=== PATIENT | male | born 1955 | race Caucasian/White ===

== ENCOUNTER 2020-03-28 13:31 | Outpatient (CLI) | payer OTHER, SELFPAY ==
--- NOTE | ~2020-03-28 | XR_ITS ---
EXAMINATION: XR chest 2V DATE: 03/28/2020 13:57 INDICATION: Productive cough. TECHNIQUE: Frontal and lateral views of the chest were obtained. COMPARISON: Chest 2 views 07/25/2010, CT abdomen and pelvis 07/25/2010 FINDINGS: The chest demonstrates clear lungs without pneumonia, pleural effusion, or pneumothorax. Th e heart size is normal. IMPRESSION: 1. No acute cardiopulmonary disease. Reviewed, dictated and finalized at location A.
== END 2020-03-28 13:32 | disposition home or self-care (01) ==
PROVIDERS: PCP Family Medicine Adolescent Medicine; Visit Provider Family Medicine Adolescent Medicine
DX: R05 Cough (principal)
CPT/HCPCS: 71046

== ENCOUNTER 2023-07-24 11:31 | Emergency (ER) | payer OTHER, SELFPAY ==
[2023-07-24 11:44] VITALS: BP 138/78; PULSE 58; RESP 18; TEMP 36.8; O2SAT 98
--- NOTE | 2023-07-24 12:13 | ED.URI ---
HPI - URI/Sore Throat General Chief Complaint: Upper Respiratory Infection Stated Complaint: cough,sob Time Seen by Provider: 07/24/23 12:00 Source: patient and RN notes reviewed Mode of arrival: ambulatory Limitations: no limitations History of Present Illness HPI Narrative: Patient presents today complaining of postnasal drip that has been worse over the last 3-4 days. States he has had postnasal drip for the past 23 years approximately. He also has developed a cough over the last 4 days that is mostly dry. Reports 1 episode of shortness of breath with a severe coughing episode this morning. Denies sore throat, nausea, vomiting, diarrhea. He has tried Claritin, cough drops, nasal spray, DayQuil, NyQuil without much relief. Denies any history of asthma or COPD. He is a nonsmoker. Related Data Allergies Allergy/AdvReac Type Severity Reaction Status Date / Time No Known Allergies Verified 03/03/22 15:18 Review of Systems Review of Systems: CONSTITUTIONAL: Denies body aches, fever, chills, or sweats. EYES: Denies visual changes, redness, or discharge. ENT: Denies rhinorrhea, sore throat, or otalgia.+ congestion, postnasal drip CARDIOVASCULAR: Denies chest pain, palpitations, or edema. RESPIRATORY: + cough, shortness of breath. GASTROINTESTINAL: Denies abdominal pain, nausea, vomiting, or diarrhea. GENITOURINARY: Denies dysuria or hematuria. SKIN: Denies rash, itching, or wounds. MUSCULOSKELETAL: Denies back pain, joint pain, or myalgia. NEUROLOGIC: Denies headache, numbness, tingling, or weakness. PSYCH: Denies depression or anxiety. [facility] Past Medical History Medical History History of prostate cancer 2009 Surgical History Surgical History History of radical prostatectomy 2009 Family History Family History Mother Carcinoma of colon Depression Social History Social History Smoking status: Never smoker Second hand tobacco smoke exposure: No Drinks per week: 4 Substance use: never Substance use type: does not use Lack of Transportation: No Lack of Food: Never True Current Housing: I Have Housing Concerned About Future Housing: No Difficulty Paying Gas/Electric Bills: No Difficulty Paying for Meds: No Currently Unemployed: No Education: High School Diploma/GED Difficulty w/ Childcare or Family Care: No Living arrangements: with family Occupation/Education: retired Gender identity (if verbalized by the patient): Male Sexual Orientation (if Verbalized by the Patient): Straight or Heterosexual Spiritual care concerns: No Agree to blood products: Yes Comments At time of signature, I have reviewed and agree with nursing past medical, surgical, social and family history unless otherwise noted. Please see nursing chart for further information. There is no relevant family history pertinent to the presenting complaint Exam Narrative: GENERAL: Well-appearing, well-nourished, and in no acute distress. HEAD: Normocephalic, atraumatic. EYES: EOMI. No redness or drainage. Conjunctivae normal. ENT: Mucous membranes pink and moist. Nares mildly congested. No rhinorrhea. Right nasal turbinates are erythematous and edematous. TMs normal bilaterally. Throat normal. Uvula midline. NECK: Normal AROM. Supple. No lymphadenopathy. CHEST: No respiratory distress. Clear to auscultation. HEART: Regular rate and rhythm. No murmur appreciated. Normal peripheral pulses. EXTREMITIES: Normal range of motion. No edema. SKIN: Warm, dry, no rash. Capillary refill normal. Normal skin turgor. NEURO: No focal deficits. Alert and oriented x3. Gait steady. PSYCH: Normal affect. No signs of depression or anxiety. Course Course Level of
== END 2023-07-24 12:25 | disposition home or self-care (01) ==
PROVIDERS: Emergency Provider Nurse Practitioner; PCP Family Medicine Adolescent Medicine
DX: J06.9 Acute upper respiratory infection, unspecified (principal); Z85.46 Personal history of malignant neoplasm of prostate
CPT/HCPCS: 99213; G0463

== ENCOUNTER 2024-05-09 13:24 | Outpatient (CLI) | payer MEDICARE, SELFPAY ==
--- NOTE | 2024-05-09 13:35 | ECG_ITS ---
Test Date: 2024-05-09 13:44:11 Measurements Intervals [place] Rate: 66 P: 44 DE: 162 QRS: -2 QRSD: 85 T: 31 QT: 380 QTc: 399 Interpretive Statements SINUS RHYTHM BASELINE ARTIFACT- I, II, AVR NORMAL ECG No previous ECG available for comparison Electronically Signed On 05-09-2024 14:00:26 CDT by Jose Valiente D.O.
== END 2024-05-09 13:25 | disposition home or self-care (01) ==
LOC: ANHSURGERY 13:27
PROVIDERS: PCP Family Medicine Adolescent Medicine; Visit Provider Otolaryngology
DX: E78.00 Pure hypercholesterolemia, unspecified (principal); Z01.818 Encounter for other preprocedural examination
CPT/HCPCS: 93005

== ENCOUNTER 2024-05-12 00:52 | Day surgery (SDC) | payer MEDICARE, SELFPAY ==
--- NOTE | 2024-05-08 15:46 | PC.NURSE ---
Report to the Outpatient Waiting Room, entrance under the green pavilion located off [facility], at time _1145 AM on date ___05/12/24____. Planned Procedure Time: _1:45PM . Time changes happen often and if your time is changed the preop area will call you the afternoon before. - You and your visitor will be asked to self-screen and do not enter if you have any COVID symptoms. - A mask is optional within the hospital at this time. Patients may have clear liquids (water, carbonated beverages, clear teas, apple juice) until 3 hours prior to surgery( 10:45 AM) with a maximum of 20 ounces. - No food from midnight until time of surgery - Infants may have breast milk until 4 hours before surgery, infant formula 6 hours prior to surgery. - Children will be allowed to drink immediately following surgery. If applicable, please bring a bottle or sippy cup to assist with drinking. Juice, water, soda, and popsicles are readily available. For infants on formula, please bring formula the day of surgery. Pacifiers are allowed. Take the following medications with a SIP of water the morning of surgery: __NONE DO NOT STOP ANY OF YOUR OTHER PRESCRIPTION MEDICATIONS PRIOR TO SURGERY ?EXCEPT THE FOLLOWING Medications to discontinue per physician NONE Please no make-up, nail mohawk, hairspray, perfume, deodorant, or body powder the day of surgery. No jewelry (including any body piercings) or valuables the day of surgery, leave them at home. Please take a shower or bath the night before, or the morning of, surgery with an antibacterial soap. Wear comfortable, loose fitting clothing. Children are encouraged to wear pajamas. - Jewelry must be removed prior to entering the operating room. Rings and piercings that are not removed may be cut off. - The hospital will not accept responsibility for valuables. - Please leave all valuables, including medications, at home the day of surgery. If you are going home after surgery, a licensed [place] driver must drive you home. - NO public transportation without another adult if you receive anesthesia. - We recommend that an adult stay with you for 24 hours following discharge. - We also recommend that you do not drive, make important decision, drink alcoholic beverages, or take any drugs that were not prescribed by your health care provider for at least 24 hours after your discharge time. Follow any additional instructions given to you from your surgeon. If you or anyone in your household have experienced Covid symptoms in the past week, please notify your surgeon or the nurse liaison at the phone number below for possible testing. Telephone instructions given to __PATIENT and asked if any additional questions and then verbalized understanding. Patient advised to call surgeon office or pre surgery nurse liaison [phone] if any additional questions.
[2024-05-08 15:51] VITALS: BMI 29.0
--- NOTE | 2024-05-11 16:44 | PM.IMHP ---
H&P: HPI History of Present Illness Date/Time: 05/11/24 16:44 Chief Complaint: hoarse voice vocal cord lesion Narrative: planned procedure Review of Systems Review of Systems: All systems reviewed & are unremarkable except as noted in HPI and below PMFSH Past Medical History Medical History History of prostate cancer 2009 Surgical History Surgical History History of radical prostatectomy 2009 Family History Family History (Updated 05/04/24 @ 09:28 by Edyta Azevedo CMA) Mother Carcinoma of colon Depression Sibling Depression Social History Social History Smoking status: Never smoker Second hand tobacco smoke exposure: No Alcohol intake: current Drinks per week: 8 Substance use: never Substance use type: does not use Lack of Transportation: No Lack of Food: Never True Current Housing: I Have Housing Concerned About Future Housing: No Difficulty Paying Gas/Electric Bills: No Difficulty Paying for Meds: No Currently Unemployed: No Education: High School Diploma/GED Difficulty w/ Childcare or Family Care: No Living arrangements: with family Occupation/Education: retired Gender identity (if verbalized by the patient): Male Sexual Orientation (if Verbalized by the Patient): Straight or Heterosexual Spiritual care concerns: No Agree to blood products: Yes Meds Home Medications and Allergies Home Medications Medication Instructions Recorded Confirmed Type atorvastatin 20 mg tablet 20 mg PO DAILY #90 tabs 06/10/23 05/08/24 Rx ipratropium bromide 42 mcg (0.06 2 spray intranasal TID PRN nasal 08/09/23 05/08/24 Rx %) nasal spray drainage #15 mL Allergies Allergy/AdvReac Type Severity Reaction Status Date / Time No Known Allergies Allergy Verified 05/08/24 15:39 Exam Narrative: vocal cord lesion Assessment and Plan Assessment and plan (1) Lesion of true vocal cord: Code(s): J38.3 - Other diseases of vocal cords Status: Acute Assessment and Plan: plan OR Microdirect laryngoscopy, will also need endoscope, excision of vocal cord lesion. Risks discussed bleeding infection damage to surrounding structures damage any structures above the clavicles by myself damage to any structure induction and maintenance of anesthesia including vocal cord paralysis vocal cord paralysis or myself change in voice which could be permanent change in swallow which could be permanent failure to resolve symptoms need for further procedures failure to obtain diagnosis. Damage to dentition damage to jaw. Patient voiced understanding of these risks and agreed (2) PND (post-nasal drip): Code(s): R09.82 - Postnasal drip Status: Acute
[2024-05-12] VITALS (11 sets, daily range): BP systolic 117–144; BP diastolic 65–77; PULSE 50–63; RESP 12–18; TEMP 36.3–36.6; O2SAT 96–100; BMI 28.3
--- NOTE | 2024-05-12 07:18 | WPDHPUPDATE1 ---
History and Physical Update Update Date/Time: 05/12/24 07:18 History and Physical has been reviewed, including an updated exam of the patient. There are NO changes in the patient's condition. Risks, benefits, and alternatives have been discussed and questions answered. Patient agrees to proceed with procedure.
[2024-05-12] MEDS: ACETAMINOPHEN 500 MG TABLET 1000 MG PO (10:23)
--- NOTE | 2024-05-12 10:53 | WPDANESEPPF ---
Anes - Initial Pre Proc Eval Procedure: Operation Date: 05/12/24 13:45 Proposed Procedures p Microdirect Laryngoscopy with Vocal Cord Biopsy - Carlyle Alexander MD Date/Time: 05/12/24 10:53 Surgeon: Carlyle Alexander MD Pre Op Diagnosis: Vocal Cord Lesion Patient Data Age: 68 Gender: M Height: 1.78 m Weight: 91.65 kg Allergies Allergy/AdvReac Type Severity Reaction Status Date / Time No Known Allergies Allergy Verified 05/08/24 15:39 Home Medications Medication Instructions Recorded Confirmed Type atorvastatin 20 mg tablet 20 mg PO DAILY #90 tabs 06/10/23 05/08/24 Rx ipratropium bromide 42 mcg (0.06 2 spray intranasal TID PRN nasal 08/09/23 05/08/24 Rx %) nasal spray drainage #15 mL Patient hx anesthesia problems: none Family hx anesthesia problems: none Results Review: All pre-operative results and documents have been reviewed as part of the pre-operative evaluation. [facility] Past Medical History Medical History History of prostate cancer 2009 Surgical History Surgical History History of radical prostatectomy 2009 Family History Family History Mother Carcinoma of colon Depression Sibling Depression Social History Social History Smoking status: Never smoker Second hand tobacco smoke exposure: No Alcohol intake: current Drinks per week: 8 Substance use: never Substance use type: does not use Lack of Transportation: No Lack of Food: Never True Current Housing: I Have Housing Concerned About Future Housing: No Difficulty Paying Gas/Electric Bills: No Difficulty Paying for Meds: No Currently Unemployed: No Education: High School Diploma/GED Difficulty w/ Childcare or Family Care: No Living arrangements: with family Occupation/Education: retired Gender identity (if verbalized by the patient): Male Sexual Orientation (if Verbalized by the Patient): Straight or Heterosexual Spiritual care concerns: No Agree to blood products: Yes Anes - Eval Final PreProcedure Day of Procedure 05/12/24 10:53 Patient weight: overweight Heart: regular rate and rhythm Lungs: clear to auscultation Airway: Mallampati scale class II Neurological: alert and oriented Last oral intake: >/= 8 hours ASA classification: II Emergent: no Anesthetic plan: proceed Anesthesia type and monitoring: general ETT and standard monitoring Results Review: All pre-operative results and documents have been reviewed as part of the pre-operative evaluation. Informed Consent: The patient's anesthetic plan and its attendant risks and benefits were discussed with the patient/family/POA. Questions were solicited and answers provided to the satisfaction of the patient/family/POA.
[2024-05-12] MEDS: LACTATED RINGERS 1,000 ML 30 ML IV CONT ×2 (11:11→12:16)
[2024-05-12] MEDS: ceFAZolin 2 GM/D5W 50 ML 2 GM/50 ML BAG IVPB (11:12)
[2024-05-12] MEDS: OXYMETAZOLINE HCL 0.05% NAS 15 ML BTL (*BKC) 1 SPRAY NASAL (11:24)
[2024-05-12] MEDS: fentaNYL CITRATE INJ (*CRX) 100 MCG/2 ML VIAL 25 MCG IV PUSH ×2 (12:14→12:19)
[2024-05-12] MEDS: ONDANSETRON INJ 4 MG/2 ML VIAL IV PUSH (12:53)
[2024-05-12] MEDS: oxyCODONE HCL (*CRX) 5 MG TAB IR PO (13:15)
--- NOTE | 2024-05-12 15:08 | P.OP_ITS ---
Procedure Note - Detailed Date of Procedure 05/12/24 Pre-op Diagnosis Vocal Cord Lesion Post-op Diagnosis Same Procedure Performed Microdirect laryngoscopy with excisional biopsy of right vocal cord lesion sorry X using left vocal cord lesion left Surgeon Carlyle Alxeander MD Anesthesia General Indications see above Findings large exophytic left vocal cord lesion abutting the anterior commissure extending slightly subglottic as well Description of Procedure patient identified consent verified preoperative patient operating. Time-out performed. General anesthesia induced endotracheal tube secured. Patient pr epped draped position procedure confirmed 2nd time-out performed. Maxillary mouth guard placed. The Dedo laryngoscope placed airway no teeth were damaged. Vocal cords glottis brought into view lesion described above multiple biopsies were taken bleeding controlled with Afrin-soaked pledgets. And procedure about 1 cc of blood loss no active bleeding the laryngoscope removed maxillary tooth mouth guard removed. I performed all dictated portions procedure no complications condition Anesthesiology Estimated Blood Loss 1 Drains No Packing No Pathology Yes Complications No immediate complications Condition Stable Disposition PACU [facility] Billing Surgery - Charge Forward: Surgery Billing
== END 2024-05-12 13:46 | disposition home or self-care (01) ==
PROVIDERS: PCP Family Medicine Adolescent Medicine; Visit Provider Otolaryngology
PROC: 0CJS8ZZ Inspection of Larynx, Via Natural or Artificial Opening Endoscopic (ICD-10-PCS; CPT 31536; principal; 2024-05-12 13:45)
DX: C32.0 Malignant neoplasm of glottis (principal); R09.82 Postnasal drip; Z85.46 Personal history of malignant neoplasm of prostate; Z90.79 Acquired absence of other genital organ(s)
CPT/HCPCS: 31536; 88305; 93005; A9270; J0330; J0690; J1100; J2371; J2405; J2704; J3010; J7120